=== PATIENT | male | born 1995 | race Asian ===

== ENCOUNTER 2018-11-15 13:01 | Emergency (ER) | payer BC ==
[~2018-11-15] VITALS: Ht 170.2 cm; Wt 95.0 kg
--- NOTE | 2018-11-15 13:13 | NUR ---
given patient 3 10cc saline flush to flush right eye while waiting to contact poison control.
[2018-11-15] MEDS ORDERED: proparacaine 0.5% ophthalmic drops 15ml EACHEYE ONE (13:30)
--- NOTE | 2018-11-15 13:37 | NUR ---
Call to poison control at this time, spoke with Paula whom recommended thorough eye irrigation for 15 min, flouriscine drops and if dry glue residue noted then recommends erythromycin ointment tid, follow up with opthomologist in 2-3 days, eye patch to rest eye. JEREMY Juarez made aware.
[2018-11-15] MEDS ORDERED: erythromycin ophthalmic ointment 1gm tube RIGHTEYE ONE (14:25)
[2018-11-15 15:31] VITALS: BP 140/77
== END 2018-11-15 15:32 | disposition home or self-care (01) ==
LOC: ER 13:02
DX: T15.01XA Foreign body in cornea, right eye, initial encounter (principal); X58.XXXA Exposure to other specified factors, initial encounter; Y93.89 Activity, other specified; Y92.89 Other specified places as the place of occurrence of the external cause; Y99.8 Other external cause status
CPT/HCPCS: 65205; 99283; 99284

== ENCOUNTER 2019-10-21 12:21 | Emergency (ER) | payer BC ==
[~2019-10-21] VITALS: Ht 170.2 cm; Wt 93.0 kg
[2019-10-21 12:44] VITALS: BP 157/82
[2019-10-21] MEDS ORDERED: dexamethasone sod phosphate 10mg/ml inj PO STA (12:52)
[2019-10-21] MEDS ORDERED: ondansetron 4mg rapidly disintigrating tab PO ONE (12:55)
[2019-10-21] MEDS ORDERED: ketorolac tromethamine 15mg/ml inj. IM ONE (12:55)
== END 2019-10-21 14:05 | disposition home or self-care (01) ==
LOC: ER 12:21
DX: R51 Headache (principal)
CPT/HCPCS: 96372; 99283; J1100; J1885

== ENCOUNTER 2019-11-01 11:15 | Emergency (ER) | payer BC ==
[~2019-11-01] VITALS: Ht 170.2 cm; Wt 90.0 kg
[2019-11-01 13:36] LABS: BASOPHILS % (AUTO) 0.6 % (0-1); EOSINOPHILS # (AUTO) 0.3 X10'3 (0-0.9); EOSINOPHILS % (AUTO) 3.2 % (0-6); HEMATOCRIT 51.3 % (42.0-52.0); HEMOGLOBIN 17.2 g/dl (14.0-17.9); LYMPHOCYTES # (AUTO) 1.9 X10'3 (1.1-4.8); LYMPHOCYTES % (AUTO) 23.1 % (21-51); MEAN CORPUSCULAR HEMOGLOBIN 30.5 PG (27.0-31.0); MEAN CORPUSCULAR HGB CONC 33.5 g/dL (33.0-36.5); MEAN PLATELET VOLUME 7.8 FL (7.4-10.4); MONOCYTES # (AUTO) 0.7 X10'3 (0-0.9); MONOCYTES % (AUTO) 8.3 % (2-12); NEUTROPHILS # (AUTO) 5.3 X10'3 (1.8-7.7); NEUTROPHILS % (AUTO) 64.8 % (42-75); PLATELET COUNT 215 X10'3 (140-440); RED BLOOD COUNT 5.64 X10'6 (4.70-6.10); WHITE BLOOD COUNT 8.2 X10'3 (4.5-11.0)
[2019-11-01 13:51] LABS: ALANINE AMINOTRANSFERASE 55 U/L (12-78); ALBUMIN 4.2 G/DL (3.4-5.0); ALKALINE PHOSPHATASE 56 IU/L (46-116); ANION GAP 6 (8-16); ASPARTATE AMINO TRANSFERASE 16 U/L (10-37); BILIRUBIN,TOTAL 0.4 MG/DL (0.1-1.0); BLOOD UREA NITROGEN 17 MG/DL (7-18); BUN/CREATININE RATIO 17.5 (5.4-32.0); CALCIUM 9.5 MG/DL (8.5-10.1); CHLORIDE 101 MMOL/L (99-107); CREATININE 0.97 MG/DL (0.60-1.10); GLUCOSE 96 MG/DL (70-104); SODIUM 137 MMOL/L (135-145); TOTAL CARBON DIOXIDE 30.3 MMOL/L (24-32); TOTAL PROTEIN 8.4 G/DL (6.4-8.2); eGFR > 90 ML/MIN
[2019-11-01 14:15] VITALS: BP 136/79
== END 2019-11-01 14:18 | disposition home or self-care (01) ==
LOC: ER 11:15
DX: R51 Headache (principal); R53.83 Other fatigue
CPT/HCPCS: 36415; 80053; 85025; 99283